=== PATIENT | male | born 1975 | race Caucasian/White ===

== ENCOUNTER 2020-12-22 10:53 | Inpatient (IN) | payer SELFPAY ==
[~2020-12-22] VITALS: Ht 165.1 cm; Wt 83.9 kg
[2020-12-22 11:05] VITALS: BP_SYST 133
[2020-12-22 11:55] LABS: BASOPHILS % (AUTO) 0.3 % (0.0-2.0); HEMATOCRIT 43.9 % (36-54); HEMOGLOBIN 14.9 g/dL (14.0-18.0); LYMPHOCYTES # (AUTO) 0.9 K/uL (1.0-5.5); LYMPHOCYTES % (AUTO) 8.1 % (20.5-51.5); MEAN CORPUSCULAR HEMOGLOBIN 27 pg (27-31); MEAN CORPUSCULAR HGB CONC 34 % (32-36); MEAN CORPUSCULAR VOLUME 80 fL (79.0-98.0); MONOCYTES # (AUTO) 0.6 K/uL (0.0-1.0); MONOCYTES % (AUTO) 5.7 % (1.7-9.3); NEUTROPHILS # (AUTO) 9.2 K/uL (1.8-7.7); NEUTROPHILS % (AUTO) 85.9 % (40.0-70.0); PLATELET COUNT (AUTO) 369 K/uL (130-430); RED CELL DISTRIBUTION WIDTH 12.9 % (9.0-15.0); WHITE BLOOD COUNT (AUTO) 10.7 K/uL (4.8-10.8)
[2020-12-22 12:23] LABS: CALCIUM 9.4 mg/dL (8.4-11.0); CREATININE 1.04 mg/dL (0.55-1.30); POTASSIUM 4.5 mmol/L (3.5-5.1)
[2020-12-22 12:28] LABS: ALBUMIN 2.3 g/dL (3.4-4.8); BILIRUBIN,DIRECT 0.2 mg/dL (0.0-0.3); TOTAL BILIRUBIN 0.5 mg/dL (0.0-1.0)
[2020-12-22 12:34] LABS: PROTHROMBIN TIME 10.2 SECS (9.5-12.5)
[2020-12-22] MEDS ORDERED: cefTRIAXone 1 GM VIAL ONE (12:44)
[2020-12-22] MEDS ORDERED: NACL 0.9% 1,000 ML IV ONE (12:45)
[2020-12-22] MEDS ORDERED: cefTRIAXone 1 GM VIAL IM ONE (12:45)
[2020-12-22] MEDS ORDERED: AZITHROMYCIN 500 MG in NS 250 ML IV ONE (12:45)
[2020-12-22] MEDS ORDERED: DEXAMETHASONE SOD PHOSPHATE 10 MG/ML VIAL IVP ONE (12:45)
[2020-12-22] MEDS ORDERED: AZITHROMYCIN 500 MG/VIAL (ZITHROMAX) IV ONE (13:18)
[2020-12-22 13:24] LABS: C-REACTIVE PROTEIN QUANT 35.8 mg/dL (0-0.5)
[2020-12-22 14:15] VITALS: BP_SYST 152
[2020-12-22 15:30] VITALS: BP_SYST 143
[2020-12-22] MEDS: CHOLECALCIFEROL (VITAMIN D3) 5,000 UNIT TABLET PO SCH (15:45)
[2020-12-22] MEDS: DEXAMETHASONE SOD PHOSPHATE 10 MG/ML VIAL IVP SCH (15:45)
[2020-12-22] MEDS: AZITHROMYCIN 500 MG in NS 250 ML IV SCH (15:45)
[2020-12-22] MEDS ORDERED: DEXTROSE 50% JECT 50 ML DISP.SYRIN IVP PRN (15:45)
[2020-12-22] MEDS ORDERED: ACETAMINOPHEN 325 MG TABLET PO PRN (16:00)
[2020-12-22] MEDS: INSULIN REGULAR, HUMAN 100 UNITS/ML, 10 ML VIAL (humuLIN R) SUBCUT PRN ×2 (17:58→22:17)
[2020-12-22 20:00] VITALS: BP_SYST 118
[2020-12-22] MEDS: MAGNESIUM OXIDE 400 MG TABLET PO SCH (21:00)
[2020-12-22] MEDS: ENOXAPARIN SODIUM 80 MG/0.8 ML SYRINGE SUBCUT SCH (21:00)
[2020-12-22] MEDS: ASCORBIC ACID 500 MG TABLET PO SCH (21:00)
[2020-12-23] VITALS: BP_SYST 122
[2020-12-23] MEDS ORDERED: ALBUTEROL MDI INHALATION 8 GM INH INH PRN
[2020-12-23] MEDS: INSULIN REGULAR, HUMAN 100 UNITS/ML, 10 ML VIAL (humuLIN R) SUBCUT PRN ×5 (02:49→20:42)
[2020-12-23 07:25] LABS: BASOPHILS % (AUTO) 0.2 % (0.0-2.0); HEMATOCRIT 38.6 % (36-54); HEMOGLOBIN 13.1 g/dL (14.0-18.0); LYMPHOCYTES # (AUTO) 0.6 K/uL (1.0-5.5); LYMPHOCYTES % (AUTO) 7.2 % (20.5-51.5); MEAN CORPUSCULAR HEMOGLOBIN 27 pg (27-31); MEAN CORPUSCULAR HGB CONC 34 % (32-36); MEAN CORPUSCULAR VOLUME 79 fL (79.0-98.0); MONOCYTES # (AUTO) 0.5 K/uL (0.0-1.0); MONOCYTES % (AUTO) 5.3 % (1.7-9.3); NEUTROPHILS # (AUTO) 7.8 K/uL (1.8-7.7); NEUTROPHILS % (AUTO) 87.3 % (40.0-70.0); PLATELET COUNT (AUTO) 454 K/uL (130-430); RED BLOOD CELL COUNT(AUTO) 4.88 MIL/uL (4.2-6.2); RED CELL DISTRIBUTION WIDTH 12.7 % (9.0-15.0); WHITE BLOOD COUNT (AUTO) 8.9 K/uL (4.8-10.8)
[2020-12-23 07:34] LABS: ALBUMIN 1.9 g/dL (3.4-4.8); CALCIUM 8.6 mg/dL (8.4-11.0); CREATININE 0.76 mg/dL (0.55-1.30); POTASSIUM 3.8 mmol/L (3.5-5.1); TOTAL BILIRUBIN 0.3 mg/dL (0.0-1.0)
[2020-12-23 08:00] VITALS: BP_SYST 145
[2020-12-23] MEDS: PROMETHAZINE-DM 6.25 MG-15 MG/5 ML UDC PO PRN (08:46)
[2020-12-23] MEDS: ASCORBIC ACID 500 MG TABLET PO SCH ×2 (08:47→20:40)
[2020-12-23] MEDS: MAGNESIUM OXIDE 400 MG TABLET PO SCH ×2 (08:47→20:40)
[2020-12-23] MEDS ORDERED: POTASSIUM CHLORIDE 40 MEQ in NS 250 ML IV ONE (09:30)
[2020-12-23] MEDS: CHOLECALCIFEROL (VITAMIN D3) 5,000 UNIT TABLET PO SCH (09:34)
[2020-12-23] MEDS: ENOXAPARIN SODIUM 80 MG/0.8 ML SYRINGE SUBCUT SCH ×2 (10:20→20:42)
[2020-12-23 11:33] VITALS: BP_SYST 137
[2020-12-23] MEDS: AZITHROMYCIN 500 MG in NS 250 ML IV SCH (14:54)
[2020-12-23] MEDS: cefTRIAXone 1 GM in D5W 50 ML IV SCH (15:40)
[2020-12-23 15:41] VITALS: BP_SYST 126
[2020-12-23] MEDS: DEXAMETHASONE SOD PHOSPHATE 10 MG/ML VIAL IVP SCH (15:47)
[2020-12-23 20:00] VITALS: BP_SYST 137
[2020-12-24 00:05] VITALS: BP_SYST 129
[2020-12-24] MEDS: INSULIN REGULAR, HUMAN 100 UNITS/ML, 10 ML VIAL (humuLIN R) SUBCUT PRN ×6 (00:08→21:48)
[2020-12-24] MEDS: PROMETHAZINE-DM 6.25 MG-15 MG/5 ML UDC PO PRN ×2 (04:35→17:33)
[2020-12-24 07:33] LABS: HEMATOCRIT 38.4 % (36-54); LYMPHOCYTES # (AUTO) 0.6 K/uL (1.0-5.5); LYMPHOCYTES % (AUTO) 5.4 % (20.5-51.5); MEAN CORPUSCULAR HEMOGLOBIN 27 pg (27-31); MEAN CORPUSCULAR HGB CONC 34 % (32-36); MEAN CORPUSCULAR VOLUME 79 fL (79.0-98.0); MONOCYTES # (AUTO) 0.6 K/uL (0.0-1.0); MONOCYTES % (AUTO) 4.7 % (1.7-9.3); NEUTROPHILS # (AUTO) 10.7 K/uL (1.8-7.7); NEUTROPHILS % (AUTO) 89.9 % (40.0-70.0); PLATELET COUNT (AUTO) 620 K/uL (130-430); RED BLOOD CELL COUNT(AUTO) 4.83 MIL/uL (4.2-6.2); RED CELL DISTRIBUTION WIDTH 12.7 % (9.0-15.0); WHITE BLOOD COUNT (AUTO) 11.9 K/uL (4.8-10.8)
[2020-12-24 07:57] VITALS: BP_SYST 137
[2020-12-24] MEDS: ASCORBIC ACID 500 MG TABLET PO SCH ×2 (08:44→20:59)
[2020-12-24] MEDS: MAGNESIUM OXIDE 400 MG TABLET PO SCH ×2 (08:45→20:59)
[2020-12-24] MEDS: ENOXAPARIN SODIUM 80 MG/0.8 ML SYRINGE SUBCUT SCH ×2 (08:45→21:23)
[2020-12-24] MEDS: metFORMIN HCL 500 MG TABLET PO SCH ×2 (08:45→17:14)
[2020-12-24 08:58] LABS: ALBUMIN 1.9 g/dL (3.4-4.8); CALCIUM 8.7 mg/dL (8.4-11.0); CREATININE 0.68 mg/dL (0.55-1.30); TOTAL BILIRUBIN 0.2 mg/dL (0.0-1.0)
[2020-12-24] MEDS: CHOLECALCIFEROL (VITAMIN D3) 5,000 UNIT TABLET PO SCH (09:19)
[2020-12-24 12:15] VITALS: BP_SYST 130
[2020-12-24] MEDS: cefTRIAXone 1 GM in D5W 50 ML IV SCH (13:41)
[2020-12-24] MEDS: DEXAMETHASONE SOD PHOSPHATE 10 MG/ML VIAL IVP SCH (15:20)
[2020-12-24] MEDS: AZITHROMYCIN 500 MG in NS 250 ML IV SCH (15:20)
[2020-12-24 16:13] VITALS: BP_SYST 112
[2020-12-24 20:02] VITALS: BP_SYST 134
[2020-12-25 00:05] VITALS: BP_SYST 146
[2020-12-25] MEDS: PROMETHAZINE-DM 6.25 MG-15 MG/5 ML UDC PO PRN (00:45)
[2020-12-25] MEDS: INSULIN REGULAR, HUMAN 100 UNITS/ML, 10 ML VIAL (humuLIN R) SUBCUT PRN ×4 (06:12→21:00)
[2020-12-25 06:50] LABS: BASOPHILS % (AUTO) 0.4 % (0.0-2.0); EOSINOPHILS % (AUTO) 0.1 % (0.0-4.0); HEMATOCRIT 39.5 % (36-54); HEMOGLOBIN 13.4 g/dL (14.0-18.0); LYMPHOCYTES % (AUTO) 9.8 % (20.5-51.5); MEAN CORPUSCULAR HEMOGLOBIN 27 pg (27-31); MEAN CORPUSCULAR HGB CONC 34 % (32-36); MEAN CORPUSCULAR VOLUME 80 fL (79.0-98.0); MONOCYTES # (AUTO) 0.5 K/uL (0.0-1.0); MONOCYTES % (AUTO) 4.9 % (1.7-9.3); NEUTROPHILS # (AUTO) 8.2 K/uL (1.8-7.7); NEUTROPHILS % (AUTO) 84.8 % (40.0-70.0); PLATELET COUNT (AUTO) 703 K/uL (130-430); RED BLOOD CELL COUNT(AUTO) 4.96 MIL/uL (4.2-6.2); RED CELL DISTRIBUTION WIDTH 12.7 % (9.0-15.0); WHITE BLOOD COUNT (AUTO) 9.7 K/uL (4.8-10.8)
[2020-12-25 07:37] LABS: CALCIUM 8.3 mg/dL (8.4-11.0); CREATININE 0.74 mg/dL (0.55-1.30); POTASSIUM 4.4 mmol/L (3.5-5.1); TOTAL BILIRUBIN 0.3 mg/dL (0.0-1.0)
[2020-12-25 08:00] VITALS: BP_SYST 138
[2020-12-25] MEDS: ASCORBIC ACID 500 MG TABLET PO SCH ×2 (08:59→20:58)
[2020-12-25] MEDS: metFORMIN HCL 500 MG TABLET PO SCH ×2 (08:59→17:01)
[2020-12-25] MEDS: MAGNESIUM OXIDE 400 MG TABLET PO SCH ×2 (08:59→20:58)
[2020-12-25] MEDS: ENOXAPARIN SODIUM 80 MG/0.8 ML SYRINGE SUBCUT SCH ×2 (09:00→20:59)
[2020-12-25] MEDS: CHOLECALCIFEROL (VITAMIN D3) 5,000 UNIT TABLET PO SCH (09:03)
[2020-12-25] MEDS ORDERED: CHOLECALCIFEROL (VITAMIN D-3) 400 UNIT TABLET ONE (09:04)
[2020-12-25 12:00] VITALS: BP_SYST 135
[2020-12-25] MEDS: cefTRIAXone 1 GM in D5W 50 ML IV SCH (14:09)
[2020-12-25] MEDS: AZITHROMYCIN 500 MG in NS 250 ML IV SCH (15:09)
[2020-12-25] MEDS: DEXAMETHASONE SOD PHOSPHATE 10 MG/ML VIAL IVP SCH (15:24)
[2020-12-25 16:00] VITALS: BP_SYST 139
[2020-12-25 20:48] VITALS: BP_SYST 127
[2020-12-26 04:54] VITALS: BP_SYST 129
[2020-12-26] MEDS: PROMETHAZINE-DM 6.25 MG-15 MG/5 ML UDC PO PRN ×2 (05:51→14:07)
[2020-12-26] MEDS: INSULIN REGULAR, HUMAN 100 UNITS/ML, 10 ML VIAL (humuLIN R) SUBCUT PRN ×4 (06:03→21:59)
[2020-12-26 07:30] LABS: ALBUMIN 1.9 g/dL (3.4-4.8); CALCIUM 8.4 mg/dL (8.4-11.0); CREATININE 0.74 mg/dL (0.55-1.30); POTASSIUM 4.2 mmol/L (3.5-5.1); TOTAL BILIRUBIN 0.3 mg/dL (0.0-1.0)
[2020-12-26 08:00] VITALS: BP_SYST 125
[2020-12-26] MEDS: CHOLECALCIFEROL (VITAMIN D3) 5,000 UNIT TABLET PO SCH (08:43)
[2020-12-26] MEDS: ASCORBIC ACID 500 MG TABLET PO SCH ×2 (08:43→21:54)
[2020-12-26] MEDS: MAGNESIUM OXIDE 400 MG TABLET PO SCH ×2 (08:43→21:54)
[2020-12-26] MEDS: ENOXAPARIN SODIUM 80 MG/0.8 ML SYRINGE SUBCUT SCH ×2 (08:44→21:54)
[2020-12-26] MEDS: metFORMIN HCL 500 MG TABLET PO SCH ×2 (08:45→17:28)
[2020-12-26 12:00] VITALS: BP_SYST 135
[2020-12-26] MEDS: cefTRIAXone 1 GM in D5W 50 ML IV SCH (13:44)
[2020-12-26] MEDS: AZITHROMYCIN 500 MG in NS 250 ML IV SCH (15:02)
[2020-12-26] MEDS: DEXAMETHASONE SOD PHOSPHATE 10 MG/ML VIAL IVP SCH (15:02)
[2020-12-26 16:00] VITALS: BP_SYST 128
[2020-12-26] MEDS: FLUCONAZOLE 100 mg/ NS 50 ML IV SCH (17:59)
[2020-12-26] MEDS ORDERED: BARICITINIB -Non-Formulary 2 MG TABLET PO ONE (18:00)
[2020-12-26 20:07] VITALS: BP_SYST 128
[2020-12-27] VITALS (8 sets, daily range): BP systolic 116–140
[2020-12-27] MEDS: PROMETHAZINE-DM 6.25 MG-15 MG/5 ML UDC PO PRN (00:57)
[2020-12-27] MEDS: INSULIN REGULAR, HUMAN 100 UNITS/ML, 10 ML VIAL (humuLIN R) SUBCUT PRN ×4 (06:21→20:47)
[2020-12-27 07:54] LABS: CALCIUM 8.6 mg/dL (8.4-11.0); CREATININE 0.84 mg/dL (0.55-1.30); POTASSIUM 4.4 mmol/L (3.5-5.1); TOTAL BILIRUBIN 0.3 mg/dL (0.0-1.0)
[2020-12-27] MEDS: BARICITINIB -Non-Formulary 2 MG TABLET PO SCH (08:29)
[2020-12-27] MEDS: MAGNESIUM OXIDE 400 MG TABLET PO SCH ×2 (08:29→20:44)
[2020-12-27] MEDS: ASCORBIC ACID 500 MG TABLET PO SCH ×2 (08:29→20:44)
[2020-12-27] MEDS: metFORMIN HCL 500 MG TABLET PO SCH ×2 (08:29→17:35)
[2020-12-27] MEDS: CHOLECALCIFEROL (VITAMIN D3) 5,000 UNIT TABLET PO SCH (08:30)
[2020-12-27] MEDS: ENOXAPARIN SODIUM 80 MG/0.8 ML SYRINGE SUBCUT SCH ×2 (08:36→20:48)
[2020-12-27] MEDS: cefTRIAXone 1 GM in D5W 50 ML IV SCH (13:44)
[2020-12-27] MEDS: DEXAMETHASONE SOD PHOSPHATE 10 MG/ML VIAL IVP SCH (15:03)
[2020-12-27] MEDS: FLUCONAZOLE 100 mg/ NS 50 ML IV SCH (16:44)
[2020-12-27] MEDS ORDERED: INSULIN NPH 100 UNITS/ML 10 ML VIAL SUBCUT ONE (21:45)
[2020-12-28] MEDS: INSULIN REGULAR, HUMAN 100 UNITS/ML, 10 ML VIAL (humuLIN R) SUBCUT PRN ×6 (00:55→20:20)
[2020-12-28] MEDS: PROMETHAZINE-DM 6.25 MG-15 MG/5 ML UDC PO PRN (05:23)
[2020-12-28] MEDS ORDERED: COMMUNICATION ORDER XX ONE (05:45)
[2020-12-28] MEDS: metFORMIN HCL 500 MG TABLET PO SCH ×2 (08:36→17:14)
[2020-12-28] MEDS: MAGNESIUM OXIDE 400 MG TABLET PO SCH ×2 (08:36→20:20)
[2020-12-28] MEDS: ASCORBIC ACID 500 MG TABLET PO SCH ×2 (08:36→20:20)
[2020-12-28] MEDS: BARICITINIB -Non-Formulary 2 MG TABLET PO SCH (08:37)
[2020-12-28 08:39] LABS: CALCIUM 8.5 mg/dL (8.4-11.0); CREATININE 0.65 mg/dL (0.55-1.30); POTASSIUM 4.1 mmol/L (3.5-5.1); TOTAL BILIRUBIN 0.1 mg/dL (0.0-1.0)
[2020-12-28 08:46] VITALS: BP_SYST 141
[2020-12-28] MEDS: ENOXAPARIN SODIUM 80 MG/0.8 ML SYRINGE SUBCUT SCH ×2 (08:49→20:20)
[2020-12-28] MEDS: CHOLECALCIFEROL (VITAMIN D3) 5,000 UNIT TABLET PO SCH (08:58)
[2020-12-28 09:20] LABS: BASOPHILS % (AUTO) 0.2 % (0.0-2.0); EOSINOPHILS % (AUTO) 0.1 % (0.0-4.0); HEMATOCRIT 41.2 % (36-54); HEMOGLOBIN 13.7 g/dL (14.0-18.0); LYMPHOCYTES # (AUTO) 0.8 K/uL (1.0-5.5); MEAN CORPUSCULAR HEMOGLOBIN 26 pg (27-31); MEAN CORPUSCULAR HGB CONC 33 % (32-36); MEAN CORPUSCULAR VOLUME 79 fL (79.0-98.0); MONOCYTES # (AUTO) 0.5 K/uL (0.0-1.0); MONOCYTES % (AUTO) 4.9 % (1.7-9.3); NEUTROPHILS # (AUTO) 9.7 K/uL (1.8-7.7); RED CELL DISTRIBUTION WIDTH 12.9 % (9.0-15.0); WHITE BLOOD COUNT (AUTO) 11.1 K/uL (4.8-10.8)
[2020-12-28 09:57] LABS: PLATELET COUNT (AUTO) 922 K/uL (130-430)
[2020-12-28] MEDS ORDERED: ASPIRIN 81 MG TABLET(ECOTRIN) PO ONE (10:15)
[2020-12-28 13:48] VITALS: BP_SYST 110
[2020-12-28] MEDS: cefTRIAXone 1 GM in D5W 50 ML IV SCH (13:50)
[2020-12-28 14:07] LABS: NEUTROPHILS % (AUTO) 87.8 % (40.0-70.0)
[2020-12-28] MEDS: DEXAMETHASONE SOD PHOSPHATE 10 MG/ML VIAL IVP SCH (14:46)
[2020-12-28 15:29] VITALS: BP_SYST 115
[2020-12-28] MEDS: FLUCONAZOLE 100 mg/ NS 50 ML IV SCH (16:01)
[2020-12-28] MEDS: INSULIN NPH 100 UNITS/ML 10 ML VIAL SUBCUT SCH (17:06)
[2020-12-28 20:00] VITALS: BP_SYST 121
[2020-12-29] VITALS (8 sets, daily range): BP systolic 123–137
[2020-12-29] MEDS: INSULIN NPH 100 UNITS/ML 10 ML VIAL SUBCUT SCH ×2 (06:30→18:03)
[2020-12-29] MEDS: INSULIN REGULAR, HUMAN 100 UNITS/ML, 10 ML VIAL (humuLIN R) SUBCUT PRN ×4 (06:30→20:30)
[2020-12-29 08:04] LABS: BASOPHILS % (AUTO) 0.5 % (0.0-2.0); EOSINOPHILS % (AUTO) 0.2 % (0.0-4.0); HEMATOCRIT 39.9 % (36-54); HEMOGLOBIN 13.7 g/dL (14.0-18.0); LYMPHOCYTES # (AUTO) 0.8 K/uL (1.0-5.5); LYMPHOCYTES % (AUTO) 7.2 % (20.5-51.5); MEAN CORPUSCULAR HEMOGLOBIN 27 pg (27-31); MEAN CORPUSCULAR HGB CONC 34 % (32-36); MEAN CORPUSCULAR VOLUME 79 fL (79.0-98.0); MONOCYTES # (AUTO) 0.3 K/uL (0.0-1.0); MONOCYTES % (AUTO) 3.3 % (1.7-9.3); NEUTROPHILS # (AUTO) 9.4 K/uL (1.8-7.7); NEUTROPHILS % (AUTO) 88.8 % (40.0-70.0); RED BLOOD CELL COUNT(AUTO) 5.03 MIL/uL (4.2-6.2); WHITE BLOOD COUNT (AUTO) 10.6 K/uL (4.8-10.8)
[2020-12-29] MEDS: CHOLECALCIFEROL (VITAMIN D3) 5,000 UNIT TABLET PO SCH (09:00)
[2020-12-29] MEDS: BARICITINIB -Non-Formulary 2 MG TABLET PO SCH (09:00)
[2020-12-29 09:02] LABS: POTASSIUM 4.2 mmol/L (3.5-5.1)
[2020-12-29] MEDS: MAGNESIUM OXIDE 400 MG TABLET PO SCH ×2 (09:25→20:30)
[2020-12-29] MEDS: ASPIRIN 81 MG TABLET(ECOTRIN) PO SCH (09:26)
[2020-12-29] MEDS: metFORMIN HCL 500 MG TABLET PO SCH ×2 (09:27→17:58)
[2020-12-29] MEDS: ENOXAPARIN SODIUM 80 MG/0.8 ML SYRINGE SUBCUT SCH ×2 (09:29→20:30)
[2020-12-29 10:10] LABS: CALCIUM 8.8 mg/dL (8.4-11.0)
[2020-12-29 10:11] LABS: CREATININE 0.72 mg/dL (0.55-1.30); TOTAL BILIRUBIN 0.3 mg/dL (0.0-1.0)
[2020-12-29 10:13] LABS: PLATELET COUNT (AUTO) 873 K/uL (130-430)
[2020-12-29] MEDS: ASCORBIC ACID 500 MG TABLET PO SCH ×2 (10:39→20:30)
[2020-12-29] MEDS ORDERED: MEPERIDINE HCL/PF 100 MG/ML AMP ONE (12:56)
[2020-12-29] MEDS ORDERED: MIDAZOLAM HCL 5 MG/5 ML VIAL ONE (12:57)
[2020-12-29] MEDS ORDERED: SIMETHICONE 40 MG/0.6 ML ML ONE (12:57)
[2020-12-29] MEDS: cefTRIAXone 1 GM in D5W 50 ML IV SCH (14:45)
[2020-12-29] MEDS: FLUCONAZOLE 100 mg/ NS 50 ML IV SCH (17:06)
[2020-12-29] MEDS: DEXAMETHASONE SOD PHOSPHATE 10 MG/ML VIAL IVP SCH (18:11)
[2020-12-29] MEDS: PROMETHAZINE-DM 6.25 MG-15 MG/5 ML UDC PO PRN (19:09)
[2020-12-29] MEDS ORDERED: DIPHENHYDRAMINE HCL 50 MG CAPSULE PO PRN (20:00)
[2020-12-29] MEDS: DIPHENHYDRAMINE HCL 12.5 MG/5 ML UDC PO PRN (20:30)
[2020-12-30] VITALS: BP_SYST 116
[2020-12-30] MEDS: INSULIN REGULAR, HUMAN 100 UNITS/ML, 10 ML VIAL (humuLIN R) SUBCUT PRN ×4 (06:30→21:00)
[2020-12-30] MEDS: INSULIN NPH 100 UNITS/ML 10 ML VIAL SUBCUT SCH ×2 (06:30→17:30)
[2020-12-30 06:36] LABS: BASOPHILS # (AUTO) 0.1 K/uL (0.0-0.2); BASOPHILS % (AUTO) 0.8 % (0.0-2.0); HEMATOCRIT 42.1 % (36-54); HEMOGLOBIN 14.3 g/dL (14.0-18.0); LYMPHOCYTES # (AUTO) 0.6 K/uL (1.0-5.5); LYMPHOCYTES % (AUTO) 7.2 % (20.5-51.5); MEAN CORPUSCULAR HEMOGLOBIN 27 pg (27-31); MEAN CORPUSCULAR HGB CONC 34 % (32-36); MEAN CORPUSCULAR VOLUME 80 fL (79.0-98.0); MONOCYTES # (AUTO) 0.3 K/uL (0.0-1.0); MONOCYTES % (AUTO) 3.8 % (1.7-9.3); NEUTROPHILS # (AUTO) 7.3 K/uL (1.8-7.7); NEUTROPHILS % (AUTO) 88.2 % (40.0-70.0); RED CELL DISTRIBUTION WIDTH 13.1 % (9.0-15.0); WHITE BLOOD COUNT (AUTO) 8.3 K/uL (4.8-10.8)
[2020-12-30 06:55] LABS: CREATININE 0.85 mg/dL (0.55-1.30); POTASSIUM 4.6 mmol/L (3.5-5.1)
[2020-12-30 08:00] VITALS: BP_SYST 118
[2020-12-30 08:00] LABS: PLATELET COUNT (AUTO) 847 K/uL (130-430)
[2020-12-30] MEDS: MAGNESIUM OXIDE 400 MG TABLET PO SCH ×2 (08:13→20:18)
[2020-12-30] MEDS: CHOLECALCIFEROL (VITAMIN D3) 5,000 UNIT TABLET PO SCH (08:13)
[2020-12-30] MEDS: BARICITINIB -Non-Formulary 2 MG TABLET PO SCH (08:13)
[2020-12-30] MEDS: ASPIRIN 81 MG TABLET(ECOTRIN) PO SCH (08:13)
[2020-12-30] MEDS: ASCORBIC ACID 500 MG TABLET PO SCH ×2 (08:13→20:18)
[2020-12-30] MEDS: metFORMIN HCL 500 MG TABLET PO SCH ×2 (08:13→17:30)
[2020-12-30] MEDS: ENOXAPARIN SODIUM 80 MG/0.8 ML SYRINGE SUBCUT SCH ×2 (08:15→20:18)
[2020-12-30 11:29] VITALS: BP_SYST 114
[2020-12-30 12:00] VITALS: BP_SYST 124
[2020-12-30] MEDS ORDERED: FAMOTIDINE 20 MG TABLET PO ONE (14:00)
[2020-12-30] MEDS: SODIUM CHLORIDE 500 MG TABLET PO SCH ×2 (14:30→20:18)
[2020-12-30 15:37] VITALS: BP_SYST 128
[2020-12-30] MEDS: FLUCONAZOLE 100 mg/ NS 50 ML IV SCH (17:31)
[2020-12-30 20:00] VITALS: BP_SYST 118
[2020-12-30] MEDS: FAMOTIDINE 20 MG TABLET PO SCH (20:18)
[2020-12-30] MEDS: DIPHENHYDRAMINE HCL 12.5 MG/5 ML UDC PO PRN (22:04)
[2020-12-31] VITALS: BP_SYST 122
[2020-12-31] MEDS: INSULIN NPH 100 UNITS/ML 10 ML VIAL SUBCUT SCH ×2 (06:12→17:53)
[2020-12-31 07:45] LABS: BASOPHILS # (AUTO) 0.1 K/uL (0.0-0.2); BASOPHILS % (AUTO) 0.5 % (0.0-2.0); EOSINOPHILS # (AUTO) 0.1 K/uL (0.0-0.4); EOSINOPHILS % (AUTO) 1.1 % (0.0-4.0); HEMATOCRIT 42.7 % (36-54); HEMOGLOBIN 14.2 g/dL (14.0-18.0); LYMPHOCYTES % (AUTO) 16.4 % (20.5-51.5); MEAN CORPUSCULAR HEMOGLOBIN 27 pg (27-31); MEAN CORPUSCULAR HGB CONC 33 % (32-36); MEAN CORPUSCULAR VOLUME 81 fL (79.0-98.0); MONOCYTES # (AUTO) 0.7 K/uL (0.0-1.0); MONOCYTES % (AUTO) 5.4 % (1.7-9.3); NEUTROPHILS # (AUTO) 9.5 K/uL (1.8-7.7); NEUTROPHILS % (AUTO) 76.6 % (40.0-70.0); RED BLOOD CELL COUNT(AUTO) 5.29 MIL/uL (4.2-6.2); RED CELL DISTRIBUTION WIDTH 13.1 % (9.0-15.0); WHITE BLOOD COUNT (AUTO) 12.4 K/uL (4.8-10.8)
[2020-12-31 07:55] VITALS: BP_SYST 117
[2020-12-31] MEDS: metFORMIN HCL 500 MG TABLET PO SCH ×2 (08:58→17:56)
[2020-12-31] MEDS: ASPIRIN 81 MG TABLET(ECOTRIN) PO SCH (08:58)
[2020-12-31] MEDS: LOSARTAN POTASSIUM 25 MG TABLET PO SCH (08:59)
[2020-12-31] MEDS: SODIUM CHLORIDE 500 MG TABLET PO SCH ×3 (08:59→21:29)
[2020-12-31] MEDS: FAMOTIDINE 20 MG TABLET PO SCH ×2 (08:59→21:30)
[2020-12-31] MEDS: MAGNESIUM OXIDE 400 MG TABLET PO SCH ×2 (08:59→21:30)
[2020-12-31] MEDS: ASCORBIC ACID 500 MG TABLET PO SCH ×2 (08:59→21:30)
[2020-12-31] MEDS: DEXAMETHASONE 1 MG TABLET (DECADRON) PO SCH ×2 (08:59→21:29)
[2020-12-31] MEDS ORDERED: ENOXAPARIN SODIUM 40 MG/0.4 ML SYRINGE SUBCUT SCH (09:00)
[2020-12-31 09:02] LABS: PLATELET COUNT (AUTO) 826 K/uL (130-430)
[2020-12-31] MEDS: BARICITINIB -Non-Formulary 2 MG TABLET PO SCH (09:04)
[2020-12-31] MEDS: CHOLECALCIFEROL (VITAMIN D3) 5,000 UNIT TABLET PO SCH (09:56)
[2020-12-31 11:31] VITALS: BP_SYST 109
[2020-12-31] MEDS: INSULIN REGULAR, HUMAN 100 UNITS/ML, 10 ML VIAL (humuLIN R) SUBCUT PRN ×3 (11:40→21:37)
[2020-12-31 15:36] VITALS: BP_SYST 109
[2020-12-31] MEDS: FLUCONAZOLE 100 mg/ NS 50 ML IV SCH (17:47)
[2020-12-31 20:00] VITALS: BP_SYST 116
[2020-12-31] MEDS ORDERED: APIXABAN 2.5 MG TABLET PO SCH ×2 (21:00→22:04)
[2021-01-01] VITALS: BP_SYST 108
[2021-01-01] MEDS: INSULIN NPH 100 UNITS/ML 10 ML VIAL SUBCUT SCH (06:22)
[2021-01-01] MEDS: INSULIN REGULAR, HUMAN 100 UNITS/ML, 10 ML VIAL (humuLIN R) SUBCUT PRN ×2 (06:54→12:55)
[2021-01-01 07:45] VITALS: BP_SYST 120
[2021-01-01 07:52] LABS: CALCIUM 8.6 mg/dL (8.4-11.0); CREATININE 0.99 mg/dL (0.55-1.30); POTASSIUM 4.5 mmol/L (3.5-5.1)
[2021-01-01 08:03] LABS: BASOPHILS % (AUTO) 0.1 % (0.0-2.0); EOSINOPHILS % (AUTO) 0.1 % (0.0-4.0); HEMOGLOBIN 14.3 g/dL (14.0-18.0); LYMPHOCYTES # (AUTO) 0.7 K/uL (1.0-5.5); LYMPHOCYTES % (AUTO) 7.2 % (20.5-51.5); MEAN CORPUSCULAR HEMOGLOBIN 27 pg (27-31); MEAN CORPUSCULAR HGB CONC 33 % (32-36); MEAN CORPUSCULAR VOLUME 80 fL (79.0-98.0); MONOCYTES # (AUTO) 0.4 K/uL (0.0-1.0); NEUTROPHILS # (AUTO) 9.2 K/uL (1.8-7.7); NEUTROPHILS % (AUTO) 88.6 % (40.0-70.0); PLATELET COUNT (AUTO) 719 K/uL (130-430); RED BLOOD CELL COUNT(AUTO) 5.35 MIL/uL (4.2-6.2); RED CELL DISTRIBUTION WIDTH 13.1 % (9.0-15.0); WHITE BLOOD COUNT (AUTO) 10.4 K/uL (4.8-10.8)
[2021-01-01] MEDS ORDERED: APIXABAN 2.5 MG TABLET PO SCH (09:00)
[2021-01-01] MEDS: metFORMIN HCL 500 MG TABLET PO SCH (09:14)
[2021-01-01] MEDS: MAGNESIUM OXIDE 400 MG TABLET PO SCH (09:21)
[2021-01-01] MEDS: ASPIRIN 81 MG TABLET(ECOTRIN) PO SCH (09:21)
[2021-01-01] MEDS: SODIUM CHLORIDE 500 MG TABLET PO SCH (09:21)
[2021-01-01] MEDS: FAMOTIDINE 20 MG TABLET PO SCH (09:21)
[2021-01-01] MEDS: ASCORBIC ACID 500 MG TABLET PO SCH (09:21)
[2021-01-01] MEDS: DEXAMETHASONE 1 MG TABLET (DECADRON) PO SCH (09:22)
[2021-01-01] MEDS: LOSARTAN POTASSIUM 25 MG TABLET PO SCH (09:22)
[2021-01-01] MEDS: BARICITINIB -Non-Formulary 2 MG TABLET PO SCH (09:22)
[2021-01-01] MEDS: CHOLECALCIFEROL (VITAMIN D3) 5,000 UNIT TABLET PO SCH (09:35)
[2021-01-01 12:00] VITALS: BP_SYST 116
[2021-01-01] MEDS ORDERED: ZINC220T4 PO (14:46)
[2021-01-01 14:50] VITALS: BP_SYST 116
[2021-01-01] MEDS ORDERED: LOSA25TA3 PO (14:51)
[2021-01-01] MEDS ORDERED: DEC1 PO (14:52)
[2021-01-01] MEDS ORDERED: [UNRECOGNIZED DRUG - OTHER] (14:53)
[2021-01-01] MEDS ORDERED: METF-510 PO (15:01)
[2021-01-01] MEDS ORDERED: DIF100 PO (15:02)
[2021-01-01] MEDS ORDERED: ALBMDI INH (15:03)
[2021-01-01] MEDS ORDERED: APIX2.5T PO (15:03)
[2021-01-01] MEDS ORDERED: BARI2TAB PO (15:04)
[2021-01-01] MEDS ORDERED: FAMO20TA8 PO (15:06)
[2021-01-01] MEDS ORDERED: VITD2000 PO (15:06)
== END 2021-01-01 15:30 | disposition home or self-care (01) | DRG 871 ==
LOC: SED 10:53 → STU 13:13 → SMU 12-31 12:56
PROVIDERS: ADMIT Internal Medicine; ATTEND Internal Medicine
PROC: XW033E5 Introduction of Remdesivir Anti-infective into Peripheral Vein, Percutaneous Approach, New Technology Group 5 (ICD-10-PCS; principal; 2020-12-23)
DX: A41.9 Sepsis, unspecified organism (principal); U07.1 COVID-19; J12.82 Pneumonia due to coronavirus disease 2019; J96.01 Acute respiratory failure with hypoxia; E43 Unspecified severe protein-calorie malnutrition; E87.1 Hypo-osmolality and hyponatremia; E11.65 Type 2 diabetes mellitus with hyperglycemia; D47.3 Essential (hemorrhagic) thrombocythemia; A08.4 Viral intestinal infection, unspecified; E66.9 Obesity, unspecified; Z68.30 Body mass index [BMI] 30.0-30.9, adult
CPT/HCPCS: 36415; 36600; 71045; 80048; 80053; 80076; 82803-TC; 82962; 83036; 83605; 83690-TC; 83880; 84484; 85025; 85379; 85610-TC; 85730-TC; 86140; 86886; 86900; 86901; 87040-TC; 87045-TC; 87046; 87086; 89055; 93005; 96365; 96367; 96375; G0378; J0456; J0696; J1100; J1450; J1650; J1815; J2175; J2250; J3480; J7050; J7060; U0003

== ENCOUNTER 2022-12-15 18:41 | Emergency (ER) | payer MEDICAID, OTHER ==
[~2022-12-15] VITALS: Ht 162.6 cm; Wt 88.5 kg
[~2022-12-15 18:41] MED LIST: ALBMDI INH; APIX2.5T PO; BARI2TAB PO; DEC1 PO; DIF100 PO; FAMO20TA8 PO; LOSA25TA3 PO; METF-518 PO; VITD2000 PO; ZINC220T4 PO
[2022-12-15 18:52] VITALS: BP_SYST 163
[2022-12-15 19:32] LABS: BASOPHILS # (AUTO) 0.1 K/uL (0.0-0.2); BASOPHILS % (AUTO) 0.5 % (0.0-2.0); EOSINOPHILS # (AUTO) 0.2 K/uL (0.0-0.4); EOSINOPHILS % (AUTO) 1.5 % (0.0-4.0); HEMATOCRIT 45.3 % (36-54); HEMOGLOBIN 15.2 g/dL (14.0-18.0); LYMPHOCYTES # (AUTO) 3.6 K/uL (1.0-5.5); LYMPHOCYTES % (AUTO) 31.3 % (20.5-51.5); MEAN CORPUSCULAR HEMOGLOBIN 27 pg (27-31); MEAN CORPUSCULAR HGB CONC 34 % (32-36); MEAN CORPUSCULAR VOLUME 81 fL (79.0-98.0); MONOCYTES # (AUTO) 0.9 K/uL (0.0-1.0); MONOCYTES % (AUTO) 7.9 % (1.7-9.3); NEUTROPHILS # (AUTO) 6.8 K/uL (1.8-7.7); NEUTROPHILS % (AUTO) 58.8 % (40.0-70.0); PLATELET COUNT (AUTO) 295 K/uL (130-430); RED BLOOD CELL COUNT(AUTO) 5.62 MIL/uL (4.2-6.2); RED CELL DISTRIBUTION WIDTH 12.9 % (9.0-15.0); WHITE BLOOD COUNT (AUTO) 11.6 K/uL (4.8-10.8)
[2022-12-15 19:46] LABS: CALCIUM 9.8 mg/dL (8.4-11.0); CREATININE 1.27 mg/dL (0.55-1.30)
[2022-12-15 19:50] LABS: ALBUMIN 3.8 g/dL (3.4-4.8); TOTAL BILIRUBIN 0.4 mg/dL (0.0-1.0)
[2022-12-15] MEDS ORDERED: MAG HYDROX/AL HYDROX/SIMETH 30 ML, DICYCLOMINE HCL 20 MG, LIDOCAINE VISCOUS 2% 15ML (PO... PO ONE ×3 (20:00)
--- NOTE | 2022-12-15 20:30 | NUR ---
Pt brought by self, A&Ox4, pt presents to ER with intermittent abdominal pain x 1 month, skin pink and warm, cap refill <3, VSS, respirations even and unlabored, will cont to monitor.
--- NOTE | 2022-12-15 20:50 | NUR ---
Dr Akins evaluating patient in the triage room
[2022-12-15 20:53] LABS: BILIRUBIN,URINE NEGATIVE (NEGATIVE); BLOOD, URINE NEGATIVE (NEGATIVE); CLARITY/URINE CLEAR (CLEAR); COLOR,URINE YELLOW (YELLOW); GLUCOSE,URINE 2+ (NEGATIVE); KETONES,URINE TRACE (NEGATIVE); LEUKOCYTE ESTERASE ,URINE NEGATIVE (NEGATIVE); NITRITE, URINE NEGATIVE (NEGATIVE); PH,URINE 5.5 (5.0-8.0); PROTEIN URINE TRACE (NEGATIVE); UROBILINOGEN,URINE 0.2 (0.2-1.0)
[2022-12-15] MEDS ORDERED: FAMO-132 PO (21:07)
[2022-12-15] MEDS ORDERED: SIME125T69 PO (21:07)
--- NOTE | 2022-12-15 21:32 | NUR ---
Patient given written and verbal discharge instructions and verbalizes understanding. ER MD discussed with patient the results and treatment provided. Patient in stable condition. ID arm band removed. Rx of pepcid and simethicone given. Patient educated on pain management and to follow up with PMD. Pain Scale 2/10 . Opportunity for questions provided and answered. Medication side effect fact sheet provided.
[2022-12-15 21:33] VITALS: BP_SYST 163
== END 2022-12-15 21:33 | disposition home or self-care (01) ==
LOC: SED 18:41
DX: R10.84 Generalized abdominal pain (principal); R19.7 Diarrhea, unspecified; E11.65 Type 2 diabetes mellitus with hyperglycemia; R73.9 Hyperglycemia, unspecified; R07.9 Chest pain, unspecified; Z79.899 Other long term (current) drug therapy
CPT/HCPCS: 99285; 74176; 71045; 80053; 82962; 83690; 85025; 84484; 36415; 76376; 81003; J2001